=== PATIENT | female | born 1945 | race Caucasian/White ===

== ENCOUNTER 2018-01-26 08:30 | Outpatient (RCR) | payer OTHER, SELFPAY ==
--- NOTE | 2018-01-05 11:37 | PTTR_ITS ---
DATE: 01/05/18 SUBJECTIVE: Pt states that she is doing ok for the most part and still noticing some tenderness and limited motion through the shoulder. OBJECTIVE: Manual therapy: ([id number]). Pt place din the supine position gently mobilized with cervical traction to achieve a resting position of cervical retraction. She is then mobilized with gentle segmental glides both lateral and PA and then slightly stretched through the levator and upper trapezius with low load long duration holds. Mobilization then moves to the shoulder girdle where she received oscillatory lateral distraction as well as scapular jiggles to increase muscle tension. Long axis traction is applied while she is mobilized in the plane of scaption to about 120* and pt is then mobilized through the plane of abduction beyond 90* to closer to 100* with a posterior lateral glide of the humeral head. Pt stretched lightly through the pectorals and biceps with low load long duration holds. In the 90* abduction plane, pt is externally rotated to 85*. She has been internally rotated to about 45* with notable limitation with scapular rolling and she is able to achieve closer to 65*. She then receives gentle mobilization to the posterior cuff. Skilled PT services are still required for this pt in order to address her functional limitations mainly due to pain and ROM limitations as she continues to progressively work on her strengthening plan alone. KX modifier applied to all charges. Direct treatment time: 30 minutes Total treatment time: 30 minutes
--- NOTE | 2018-01-12 15:20 | PTTR_ITS ---
DATE: 01/12/18 SUBJECTIVE: Pt states that she is holding her own and continuing to try to strengthen the shoulder. OBJECTIVE: KX modifier applied to all charges Manual therapy: ([id number]). Pt placed in the supine position receiving gentle traction to the cervical vertebrae to unload the cervical spine. She is then gently mobilized with stretching of the levator scapular and upper trap with low load long duration holds. Pt mobilized at the shoulder with oscillatory lateral distraction as well as scapular jiggles. She is then stretched through the pectorals and biceps with low load long duration holds. Posterior lateral glide to the humeral head applied while pt mobilized into about 95* of abduction. Her ER mobilized to about 85* IR with scapular blocking to 45* and overhead shoulder flexion available to 155* in the side lying position on the (R ). She is mobilized through the posterior cuff of the (L) shoulder focusing on the areas of the musculotendinous junction of the ER rotators of the rotator cuff teres minor and teres major. Skilled PT services are required for this pt in order to address and remediate her functional limitations due to strength and mobility impairments. Direct treatment time: 30 minutes Total treatment time: 30 minutes
--- NOTE | 2018-01-19 11:27 | PTTR_ITS ---
DATE: 01/19/18 SUBJECTIVE: I am doing okay for the most part. Still having some issues. OBJECTIVE: Treatment: Manual Therapy ([id number]): Patient was placed in supine and mobilized with gentle cervical traction to achieve resting position of cervical retraction. Patient was mobilized with segmental lateral and PA glides through the cervical spine with good tolerance and then full side bending and extension on top of the articular glide. Patient then mobilized with stretch of the levator scapulae and upper trapezius with low load long duration holds. In the prone position the patient was guided through PA glides through the thoracic spine up to a grade III distribution of strength. Patient was then mobilized with extension of the shoulder to her end of tolerable limit. Treatment time: 30 minutes of direct patient care.
--- NOTE | 2018-01-26 11:12 | PTTR_ITS ---
DATE: 01/26/18 SUBJECTIVE: Pt states that she is doing ok for the most part. Still some difficulty with performing some of her everyday activities with her L shoulder. OBJECTIVE: Manual therapy: ([id number]).Pt placed in the supine position receiving gentle traction through the cervical vertebra to unload the cervical spine, while then applying gentle oscillations of cervical retraction and then segmental, both PA and lateral glides, to facilitate motion. She is softly side bent and extended and then stretched lightly through the upper trapezius with low load long duration holds. Pt then mobilized in the prone position through the thoracic spine with grade III+ mobilizations to promote vertebral separation and pure joint glide. She is then extended through the shoulder to end range with oscillations to improve extensibility. In the supine position, she is mobilized with oscillatory lateral distraction, as well as scapular jiggles to decrease muscle tension. Pt tolerates treatment well. KX modifier applied to today's charge. Skilled PT services are still required for this pt in order to accommodate to her lingering shoulder issues and to remediate some of her functional discrepancies with premorbid ability. Direct treatment time: 35 min Total treatment time: 35 min MIKE/fw
== END 2018-01-30 23:59 | disposition home or self-care (01) ==
LOC: PT 08:30
PROVIDERS: PCP Family Medicine; Referring Provider Student in an Organized Health Care Education/Training Program; Visit Provider Student in an Organized Health Care Education/Training Program
DX: Z47.89 Encounter for other orthopedic aftercare (principal); M75.02 Adhesive capsulitis of left shoulder
CPT/HCPCS: 97140

== ENCOUNTER 2018-01-28 01:04 | Outpatient (CLI) | payer OTHER, SELFPAY ==
--- NOTE | 2018-01-28 09:15 | DI.REPORT_ITS ---
SYMPTOM/DIAGNOSIS: SCREENING, Z12.31 MAMMOGRAMS: Mammograms were interpreted according to the usual protocol including computer analysis with CAD system, tomosynthesis and C view imaging. The breast tissue is heterogeneously radiodense which lowers the sensitivity of the study. There is no dominant mass. There are no suspicious calcifications and there has been no significant interval change when compared with prior images. SUMMARY: No evidence of malignancy, category 1. Yearly screening mammography is recommended. Breast density, category C. SA ASSESSMENT OF FINDINGS: Negative. Category 1. Patient will receive a letter notifying them of these results. Bi-RADS category C. The breasts are heterogeneously dense, which may obscure small masses.
== END 2018-01-28 01:05 ==
PROVIDERS: PCP Family Medicine; Visit Provider Family Medicine
DX: Z12.31 Encounter for screening mammogram for malignant neoplasm of breast (principal)
CPT/HCPCS: 77063; 77067

== ENCOUNTER → 2018-03-02 07:58 | Outpatient (BNVA) | payer OTHER, SELFPAY | PROVIDERS: PCP Family Medicine; Referring Provider Family Medicine; Visit Provider Student in an Organized Health Care Education/Training Program | DX: M75.112 Incomplete rotator cuff tear or rupture of left shoulder, not specified as traumatic (principal); M75.02 Adhesive capsulitis of left shoulder; M25.512 Pain in left shoulder | CPT/HCPCS: 20610; 99213; J1040 ==

== ENCOUNTER → 2018-04-20 08:39 | Outpatient (BNVA) | payer OTHER, SELFPAY | PROVIDERS: PCP Family Medicine; Referring Provider Family Medicine; Visit Provider Student in an Organized Health Care Education/Training Program | DX: M75.102 Unspecified rotator cuff tear or rupture of left shoulder, not specified as traumatic (principal); M75.02 Adhesive capsulitis of left shoulder | CPT/HCPCS: 20610; 99213; J1040 ==

== ENCOUNTER → 2018-06-03 08:00 | Outpatient (BNVA) | payer OTHER, SELFPAY | PROVIDERS: PCP Family Medicine; Referring Provider Family Medicine; Visit Provider Student in an Organized Health Care Education/Training Program | DX: M75.122 Complete rotator cuff tear or rupture of left shoulder, not specified as traumatic (principal); M75.02 Adhesive capsulitis of left shoulder; Z47.89 Encounter for other orthopedic aftercare | CPT/HCPCS: 99213 ==

== ENCOUNTER 2020-03-31 12:10 | Emergency (ER) | payer OTHER, SELFPAY ==
[2020-03-31 12:17] VITALS: BP 154/60; PULSE 53; RESP 18; TEMP 36.5; O2SAT 100
--- NOTE | 2020-03-31 12:30 | RT.EKG_ITS ---
APPROVED REPORT Exam: Resting ECG Patient Location: E HR:50 bpm ECG Measurements Heart Rate 50 AXIS ID 165 P 82 QRSd 81 QRS 71 QT 470 T 64 QTc 430 Conclusion Sinus bradycardia...rate< 60 Probable left atrial enlargement...P >50mS, <-0.10mV V1
--- NOTE | 2020-03-31 12:30 | DI.CT_ITS ---
EXAM: CT BRAIN NECK CTA CLINICAL HISTORY: Visual changes, headache, dizzy. TECHNIQUE: Imaging Protocol: Axial CT angiography was performed with multi-slice acquisition and mu lti-planar and/or 3D reconstructions. CONTRAST MATERIAL: Intravenous: Omnipaque 350 Contrast volume:structured data in ml COMPARISON: No exams were available for comparison FINDINGS: CT angiography of the cervical cranial region was performed according to the usual protocol with intr avenous infusion of 85 cc of Omnipaque 350.. Initial noncontrast scanning of the head is unremarkable. Visualized lung apices are clear. Visualized portions of thoracic aorta and pulmonary arterial circul ation are unremarkable. There is no evidence of a cervical mass or adenopathy. The tracheal laryngeal structures appear intact. The common, internal, and external carotid arteries are within normal limits in the cervical region w ith no evidence of aneurysm, stenosis, or dissection. The vertebral arteries are unremarkable in appearance in the cervical region with no evidence of aneu rysm, stenosis, or dissection. Intracranial portions of the internal carotid arteries appear normal with no evidence of aneurysm, st enosis, or dissection. Intracranial vertebral arteries and basilar artery appear normal with no evidence of aneurysm, stenos is or dissection. No aneurysm identified in the region of the [id number]. The anterior, middle, and posterior cer ebral arteries and major branches appear intact with no evidence of aneurysm, stenosis, or dissection . No enhancing brain lesion identified. IMPRESSION: Negative CT angiography of the cervical cranial region. RADIATION DOSE DELIVERED: 1,038.68mGy.cmTotal DLP 1,038.68mGy.cm Total DLP DATA REPOSITORY: All CT scans at this facility are submitted to the National Radiology Data Registry (NRDR) Dose Index Registry (DIR) with the [employer] (A[employer]). RADIATION OPTIMIZATION: All CT scans at this facility use at least one of these dose optimization te chniques: automated exposure control; mA and/or kV adjustment per patient size (includes targeted exa ms where dose is matched to clinical indication); or iterative reconstruction.
[2020-03-31 12:32] VITALS: RESP 18
--- NOTE | 2020-03-31 12:35 | ED.GENADUL_ITS ---
Discharge Plan Disposition Patient Disposition: HOME Condition: Stable Discharge Details Clinical Impression: [facility] Primary Care Provider: Elif Mullen ED Provider: Phuong Valero Home Meds and New Rx's Prescriptions: Continued valacyclovir 500 MG tablet 500 mg PO PRN RF: 0 vitamin B complex [B Complete] 1 EACH tablet 1 ea PO DAILY RF: 0 calcium carbonate 500 MG tablet,chewable 500 mg PO DAILY RF: 0 acetaminophen [Acetaminophen Extra Strength] 500 MG tablet 1,000 mg PO Q8H PRN PRNQty: 180 RF: 3 Turmeric/Herbal Complex No.278 [in-Fla-Mend Capsule] 150 MG capsule 150 mg PO DAILY RF: 0 ibuprofen 200 MG tablet 200 mg PO PRN PRNRF: 0 Discharge Instructions Instructions: [facility] (ED) Additional Instructions: Your work-up today was completely within normal limits. No abnormalities noted on head CT or labs. Please follow-up with neurology and ophthalmology and primary care provider as previously discussed. Follow up with primary care provider in 3-5 days. Return to ED sooner if any worsening or concerns. Increase oral fluids. Return for any worsening symptoms, worsening headache, weakness, dizziness or any concerns. Referrals: Elif Mullen [Primary Care Provider] - Shannan Ellington MD [ [facility] STAFF PHYSICIAN] - Discharge Data Discharge Date/Time-TO BE ENTERED AT DEPARTURE: 03/31/20 17:20 Medical Decision Making <AARON Guerrero - Last Filed: 04/01/20 16:19> 75-year-old female presents with double vision, feeling off balance, mild headache that began approximately 30 minutes ago, feeling off balance and double vision resolves within 3 minutes, global dull headache persists. Clinically she appears well, nontoxic, she is neurologically intact. Patient is fairly healthy at baseline. Differential includes but not excluded to ocular migraine, TIA, CVA, mass at the optic chiasm, intracranial bleed, aneurysm, etc. We discussed work-up. She is agreeable to obtaining IV access, laboratory values, chest x- ray, EKG, CTA of head and neck and a head CT. Initial work-up in the ER is unremarkable for emergent process. Blood pressure trending down to 148/66. Laboratory values reveal a normal white count, no evidence of anemia, platelet count 181. INR 1.1, chemistries unremarkable. Troponin less than 0.05. Urinalysis trace blood otherwise unremarkable. Chest x-ray, head CT, head and neck CTA all unremarkable per radiology. Discussed work-up with patient. She is relieved and agreeable to awaiting repeat troponin. Reports headache is still dull, will give 1 g p.o. Tylenol. It should be noted that her visual acuity left and right was 20/50, bilaterally 20/20. Patient eating a sandwich and drinking coffee without difficulty. Awaiting repeat troponin. Medical Records Medical records reviewed: Yes I reviewed the patient's medical records. Lab Data Lab results reviewed: Yes I reviewed the patient's lab results. Lab results narrative: Laboratory Tests Range/Units 03/31/20 03/31/20 03/31/20 12:40 12:50 12:50 WBC (4.4-10.8) 10^3/uL RBC (3.93-5.22) 10^6/uL Hgb (11.2-15.7) g/dL Hct (36.0-46.0) % MCV (80-95) fL MCH (27.0-33.0) pg MCHC (32.0-36.0) % RDW (11.7-14.6) % Plt Count (130-400) 10^3/uL MPV (8.0-11.0) fL Immature Gran % Neutrophils % Lymphocytes % Monocytes % Eosinophils % Basophils % Nucleated RBC % % Absolute Neutrophils (1.2-6.7) 10^3/uL Absolute Lymphocytes (1.2-3.4) 10^3/uL Absolute Monocytes (0.1-0.8) 10^3/uL Absolute Eosinophils (0.0-0.7) 10^3/uL Absolute Basophils (0.0-0.2) 10^3/uL PT (9.3-11.0) sec 10.7 INR (0.9-1.1) 1.1 Sodium (136-145) mmol/L 140 Potassium (3.5-5.1) mmol/L 3.7 Chloride (98-107) mmol/L 105 Carbon Dioxide (21.0-32.0) mmol/L 29.5 Anion Gap (3-11) mmol/L 5.5 BUN (7-18) mg/dL 15 Creatinine (0.55-1.02) mg/dL 0.71 Estimated GFR/1.73 m2 (mL/min/1.73m2) >= 60.00 Glucose (74-106) mg/dL 87 Calcium (8.5-10.1) mg/dL 8.9 Magnesium (1.8-2.4) mg/dL 2.3 Total Bilirubin (0.2-1.0) mg/dL 0.3 AST (15-37) U/L 22 ALT (14-59) U/L 25 Alkaline Phosphatase (46-116) U/L 56 Troponin I (<0.06) ng/mL < 0.05 Total Protein (6.4-8.2) g/dL 6.7 Albumin (3.4-5.0) g/dL 3.5 Urine Color (Yellow) Yellow Urine Clarity (Clear) Clear Urine pH (5-8) 7.0 Ur Specific [place] (1.005-1.025) 1.015 Urine Protein (Negative) mg/dL Negative Urine Ketones (Negative) mg/dL Negative Urine Blood (Negative) Trace-intact H Urine Nitrite (Negative) Negative Urine Bilirubin (Negative) Negative Urine Urobilinogen (Up TO 0.2) EU/dL 0.2 Ur Leukocyte Esterase (Negative) Negative Urine RBC (0-2) HPF 0-2 Urine WBC (0-5) HPF 0-2 Ur Epithelial Cells (Negative) HPF Few Urine Crystals (Negative) HPF Negative Urine Bacteria (Negative) HPF Negative Urine Casts (Negative) LPF Negative Urine Mucus (Negative) Negative Ur Culture Indicated? No Urine Glucose (Negative) mg/dL Negative Range/Units 03/31/20 12:50 WBC (4.4-10.8) 10^3/uL 5.09 RBC (3.93-5.22) 10^6/uL 4.24 Hgb (11.2-15.7) g/dL 12.6 Hct (36.0-46.0) % 39.4 MCV (80-95) fL 92.9 MCH (27.0-33.0) pg 29.7 MCHC (32.0-36.0) % 32.0 RDW (11.7-14.6) % 14.2 Plt Count (130-400) 10^3/uL 181 MPV (8.0-11.0) fL 10.7 Immature Gran % 0.2 Neutrophils % 52.8 Lymphocytes % 32.4 Monocytes % 11.0 Eosinophils % 2.8 Basophils % 0.8 Nucleated RBC % % 0 Absolute Neutrophils (1.2-6.7) 10^3/uL 2.69 Absolute Lymphocytes (1.2-3.4) 10^3/uL 1.65 Absolute Monocytes (0.1-0.8) 10^3/uL 0.56 Absolute Eosinophils (0.0-0.7) 10^3/uL 0.14 Absolute Basophils (0.0-0.2) 10^3/uL 0.04 PT (9.3-11.0) sec INR (0.9-1.1) Sodium (136-145) mmol/L Potassium (3.5-5.1) mmol/L Chloride (98-107) mmol/L Carbon Dioxide (21.0-32.0) mmol/L Anion Gap (3-11) mmol/L BUN (7-18) mg/dL Creatinine (0.55-1.02) mg/dL Estimated GFR/1.73 m2 (mL/min/1.73m2) Glucose (74-106) mg/dL Calcium (8.5-10.1) mg/dL Magnesium (1.8-2.4) mg/dL Total Bilirubin (0.2-1.0) mg/dL AST (15-37) U/L ALT (14-59) U/L Alkaline Phosphatase (46-116) U/L Troponin I (<0.06) ng/mL Total Protein (6.4-8.2) g/dL Albumin (3.4-5.0) g/dL Urine Color (Yellow) Urine Clarity (Clear) Urine pH (5-8) Ur Specific [place] (1.005-1.025) Urine Protein (Negative) mg/dL Urine Ketones (Negative) mg/dL Urine Blood (Negative) Urine Nitrite (Negative) Urine Bilirubin (Negative) Urine Urobilinogen (Up TO 0.2) EU/dL Ur Leukocyte Esterase (Negative) Urine RBC (0-2) HPF Urine WBC (0-5) HPF Ur Epithelial Cells (Negative) HPF Urine Crystals (Negative) HPF Urine Bacteria (Negative) HPF Urine Casts (Negative) LPF Urine Mucus (Negative) Ur Culture Indicated? Urine Glucose (Negative) mg/dL ECG Data Attestation: I personally reviewed and interpreted this ECG (s) as follows: Interpretation: Please see official report by Dr. Austin. Sinus bradycardia, ventricular rate of 50. No STEMI <Phuong Valero - Last Filed: 03/31/20 17:17> Care handed off to me by off going provider AARON Hemphill please see his original HPI and physical exam. At this time serial troponin is pending patient is resting quietly in the bed no acute distress has no complaints at this time. Repeat troponin is come back within normal limits discussed results and follow- up with patient who verbalized understanding. Instructed to follow-up with neurology Shannan Ellington and PCP along with ophthalmology. Patient ve rbalizes understanding. This text was generated using [employer]iant[employer] system, please disregard any oddities of phrase or misspellings. HPI <AARON Guerrero - Last Filed: 04/01/20 16:19> General Mode of arrival: EMS . Date/Time Provider Initiated Documentation: 03/31/20 12:22 . Limitations to Documentation: no limitations . Information obtained by: patient and EMS . HPI Narrative: This is a 75-year-old female with past medical history that includes fibromyalgia, GERD, presenting to the ER via EMS for evaluation. She denies any recent illness or trauma. Reports increased home stressors, her was recently placed in a [place] [facility] because of dementia and she now lives at home alone. She was outside approximately 30 minutes prior to arrival when she noticed that she was having double vision. She states that the double vision was only present when both of her eyes were open and if she closed either her left or right the symptoms went away. This was associated with a feeling of being off balance but she did not fall. She does not describe dizziness like the room was spinning. She reports he was also associated with a mild global headache, slightly worse in the occiput. She denies ever having had any symptoms like this before. She tells me that she does have ocular migraines but they have never presented like this b efore. She states that the off-balance feeling and the double vision lasted for no longer than 3 minutes although she still does have a very mild dull headache. She denies neck pain, chest pain, shortness of breath, numbness, tingling, weakness, abdominal pain, nausea, vomiting, incontinence. Related Data Home Medications Medication Instructions Recorded Confirmed valacyclovir 500 mg PO PRN 07/21/15 03/31/20 calcium carbonate 500 mg PO DAILY tab.chew 07/24/15 03/31/20 vitamin B complex [B Complete] 1 ea PO DAILY 07/24/15 03/31/20 acetaminophen [Acetaminophen Extra 1,000 mg PO Q8H PRN PRN #180 tab 06/19/17 03/31/20 Strength] Turmeric/Herbal Complex No.278 150 mg PO DAILY 09/03/17 03/31/20 [in-Fla-Mend Capsule] ibuprofen 200 mg PO PRN PRN 09/04/17 03/31/20 Previous Rx's Medication Instructions Recorded acetaminophen [Acetaminophen Extra 1,000 mg PO Q8H PRN PRN #180 tab 06/19/17 Strength] Allergies Allergy/AdvReac Type Severity Reaction Status Date / Time erythromycin base Allergy Mild Skin Rash Unverified 03/31/20 12:22 metronidazole [From Flagyl] Allergy Mild Skin Rash Unverified 03/31/20 12:22 nystatin Allergy Mild Skin Rash Unverified 03/31/20 12:22 erythromycin lactobionate Allergy rash Unverified 03/31/20 12:22 [From Erythrocin] omeprazole AdvReac Intermediate Unverified 03/31/20 12:22 NSAIDS (Non-Steroidal AdvReac mouth sores Unverified 03/31/20 12:22 Anti-Inflamma General Stated Complaint: [facility]Medical ZARA: 3 Review of Systems <AARON Guerrero - Last Filed: 04/01/20 16:19> Constitutional Constitutional: Denies fatigue, Denies fever(s), Reports headache(s) and Denies weakness Eyes Eyes: Denies blurry vision, Reports diplopia and Denies floaters ENT Ears, Nose, Mouth, and Throat: Denies dizziness, Reports headache(s) and Denies neck pain Cardiovascular Cardiovascular: Denies chest pain and Denies dyspnea Respiratory Respiratory: Denies dyspnea Gastrointestinal Gastrointestinal: Denies abdominal pain, Denies nausea and Denies vomiting Musculoskeletal Musculoskeletal: Denies back pain, Denies neck pain, Denies numbness and Denies tingling Integumentary/Breasts Skin/Breast: Denies rash Neurologic Neurologic: Denies dizziness, Reports headache(s), Denies numbness, Denies tingling and Denies weakness Endocrine Endocrine: Denies fatigue PFSH <AARON Guerrero - Last Filed: 04/01/20 16:19> Medical History Borderline diabetes mellitus Fibromyalgia GERD (gastroesophageal reflux disease) Impacted cerumen, left ear Surgical History Colonoscopy - [facility] (05/02/17) Family History Mother Diabetes Alcohol abuse CHF (congestive heart failure) Afib Father Dementia Pacemaker Social History Smoking/Tobacco Use Status: Never Smoking risk assessment performed?: Yes Alcohol Intake: current Alcohol Intake frequency: holidays/special occasions only Drug use: Never Substance use type: does not use Do you feel safe at home: Yes Do you feel safe in your relationship?: Yes Exam <AARON Guerrero - Last Filed: 04/01/20 16:19> Const General: cooperative, healthy appearing, comfortable and no acute distress Orientation: alert, awake and oriented x3 HENMT Head: normal to inspection, normocephalic and atraumatic Ears: external ears normal, TM's normal bilaterally and EAC's normal General nose exam: external nose normal Face and sinus: normal facial exam Mouth: oral mucosae normal and moist mucous membranes Throat: posterior oropharynx normal Eyes General: appearance normal, both eyes and all related structures Alignment and Position: alignment normal Periorbital: periorbital findings normal Eyelids: eyelids normal Conjunctivae: conjunctivae normal Sclera: sclerae normal Cornea: corneas normal Pupils: PERRL EOM: EOM intact bilaterally Direct ophthalmoscopy: normal light reflex Neck Neck: normal visual inspection, full ROM, no meningeal signs, trachea midline, supple and nontender Resp Effort & Inspection: normal respiratory effort and able to speak in complete sentences Auscultation: clear to auscultation bilaterally Cardio Rate: regular rate Rhythm: regular rhythm GI Palpation: soft and nontender Back/Spine/Pelvis Back: No back tenderness Skin General skin exam: no rashes or lesions noted Neuro General: patient alert, patient awake, patient oriented x3, moves all ext remities and no focal motor deficits Cranial Nerves: CN's II-XI intact bilaterally Cognition: normal cognition Speech: speech normal Gait: normal gait Motor: muscle tone normal throughout, strength 5/5 throughout, no pronator drift, no movement abnormalities noted and no fasciculations Sensory Exam: no sensory deficits noted Coordination: [id number] test normal, [id number] test normal, Does not sway with eyes open and rapid alternating movement UE normal Extrem General: normal to inspection, full ROM, capillary refill normal, no pedal edema and normal gait Psych Appearance: grossly normal Mental Status: mental status grossly normal Course <AARON Guerrero - Last Filed: 04/01/20 16:19> Vital Signs Vital signs: Vital Signs Temperature 36.5 C 03/31/20 12:17 Pulse 53 L 03/31/20 12:17 Respiratory Rate 18 03/31/20 12:17 Blood Pressure 154/60 H 03/31/20 12:17 Pulse Oximetry 100 03/31/20 12:17 Temperature 36.5 C 03/31/20 12:17 Pulse 53 L 03/31/20 12:17 Respiratory Rate 18 03/31/20 12:32 Respiratory Effort Non-Labored 03/31/20 12:32 Respiratory Depth Normal 03/31/20 12:32 Respiratory Pattern Normal 03/31/20 12:32 Blood Pressure 154/60 H 03/31/20 12:17 Blood Pressure Position Sitting 03/31/20 12:17 Pulse Oximetry 100 03/31/20 12:17 Oxygen Delivery Method Room Air 03/31/20 12:17 Oxygen Flow Rate 0 03/31/20 12:17 Sign Out <AARON Guerrero - Last Filed: 04/01/20 16:19> Sign Out Data: Sign Out Comment: At time of signout awaiting 3-hour troponin. We discussed options, patient would prefer to be discharged home versus admitted if all possible. I do believe that discharge home is reasonable assuming that she feels well and troponin is unremarkable. She does understand that outpatient follow-up through neurology, ophthalmology, potential outpatient MRI are options. Last updated by Raymond Barajas PA at 03/31/20 15:40
[2020-03-31 12:59] LABS: Abs Immature Grans 0.01 10^3/uL (0.0-0.06); Absolute Basophil Count 0.04 10^3/uL (0.0-0.2); Absolute Eosinophil Count 0.14 10^3/uL (0.0-0.7); Absolute Lymphocyte Count 1.65 10^3/uL (1.2-3.4); Absolute Monocyte Count 0.56 10^3/uL (0.1-0.8); Absolute Neutrophil Count 2.69 10^3/uL (1.2-6.7); Basophils % 0.8; Eosinophils % 2.8; HCT 39.4 % (36.0-46.0); HGB 12.6 g/dL (11.2-15.7); Immature Grans % 0.2; Lymphocytes % 32.4; MCH 29.7 pg (27.0-33.0); MCV 92.9 fL (80-95); MPV 10.7 fL (8.0-11.0); Neutrophils % 52.8; Nucleated RBC 0 %; Platelet Count 181 10^3/uL (130-400); RBC 4.24 10^6/uL (3.93-5.22); RDW 14.2 % (11.7-14.6); RDW-SD 48.7 fL; WBC 5.09 10^3/uL (4.4-10.8)
[2020-03-31 13:14] LABS: ALT 25 U/L (14-59); AST 22 U/L (15-37); Albumin 3.5 g/dL (3.4-5.0); Alkaline Phosphatase 56 U/L (46-116); Anion Gap 5.5 mmol/L (3-11); BUN 15 mg/dL (7-18); Bilirubin, Total 0.3 mg/dL (0.2-1.0); CO2 29.5 mmol/L (21.0-32.0); CREATININE 0.71 mg/dL (0.55-1.02); Calcium 8.9 mg/dL (8.5-10.1); Chloride 105 mmol/L (98-107); Glucose 87 mg/dL (74-106); Magnesium 2.3 mg/dL (1.8-2.4); Potassium 3.7 mmol/L (3.5-5.1); Sodium 140 mmol/L (136-145); Total Protein 6.7 g/dL (6.4-8.2)
[2020-03-31 13:16] LABS: INR 1.1 (0.9-1.1); Prothrombin Time 10.7 sec (9.3-11.0)
[2020-03-31 13:17] LABS: Troponin I < 0.05 ng/mL (<0.06)
[2020-03-31 13:20] LABS: Bilirubin Negative (Negative); Blood Trace-intact (Negative); Clarity Clear (Clear); Glucose Negative (Negative); Ketones Negative (Negative); Leukocyte Esterase Negative (Negative); Nitrite Negative (Negative); Specific Gravity 1.015 (1.005-1.025); Urobilinogen 0.2 EU/dL (Up TO 0.2)
[2020-03-31 13:30] LABS: Bacteria Negative HPF (Negative); C & S Indicated? No; Casts Negative LPF (Negative); Crystals Negative HPF (Negative); Epithelial Cells Few HPF (Negative); Mucus Negative (Negative); RBC 0-2 HPF (0-2); WBC 0-2 HPF (0-5)
[2020-03-31] MEDS: Normal Saline - Diluent 50 ML VIAL IV (13:30)
[2020-03-31] MEDS: Normal Saline Flush 10 ML SYR IVP (13:30)
--- NOTE | 2020-03-31 13:58 | DI.RAD_ITS ---
EXAM: XR CHEST 2V PA LATERAL CLINICAL HISTORY: dizzy TECHNIQUE: COMPARISON: No exams were available for comparison FINDINGS: The heart is not enlarged. There appear to be mild changes of pulmonary scarring and hyperinflation. No focal consolidation. No pleural effusion. IMPRESSION: No evidence of acute abnormality. RADIATION DOSE DELIVERED: Total DLP
[2020-03-31 14:34] VITALS: BP 148/66; PULSE 67; TEMP 36.7; O2SAT 100
[2020-03-31] MEDS: Acetaminophen 500 MG TAB 1000 MG PO (14:37)
--- NOTE | 2020-03-31 15:45 | RT.EKG_ITS ---
APPROVED REPORT Exam: Resting ECG Patient Location: E HR:62 bpm ECG Measurements Heart Rate 62 AXIS OK 165 P 68 QRSd 64 QRS 69 QT 452 T 57 QTc 451 Conclusion Sinus rhythm...normal P axis, V-rate 60- 99 Atrial premature complex...SV complex w/ short R-R interval
[2020-03-31 16:20] VITALS: BP 107/47; PULSE 59; RESP 18; O2SAT 98
[2020-03-31 16:48] LABS: Troponin I < 0.05 ng/mL (<0.06)
== END 2020-03-31 17:20 | disposition home or self-care (01) ==
PROVIDERS: Physician Assistant; Emergency Provider Registered Nurse Emergency; PCP Family Medicine
DX: H53.2 Diplopia (principal); R51.9 Headache, unspecified; R26.89 Other abnormalities of gait and mobility
CPT/HCPCS: 36416; 70496; 70498; 80053; 82962; 93005; 99285; 71046; 81003; 81015; 83735; 84484; 85025; 85610; 93010; 99284

== ENCOUNTER 2020-04-13 01:23 | Outpatient (CLI) | payer OTHER, SELFPAY ==
--- NOTE | 2020-04-13 | DI.US_ITS ---
EXAM: US CAROTID CLINICAL HISTORY: DOUBLE VISION BOTH EYES,H53.2. TECHNIQUE: Ultrasound carotids performed using grayscale, color-flow, and spectral Doppler imaging. COMPARISON: No exams were available for comparison FINDINGS: RIGHT CAROTID ARTERY: Plaque: Minimal. Velocity elevation: None. LEFT CAROTID ARTERY: Plaque: Minimal. Velocity elevation: None. VERTEBRAL ARTERIES: Antegrade flow. Measurements: R Bulb: 90.7cm/s PS / 23.1cm/s ED R CCA: 93.5cm/s PS / 22.2cm/s ED R ECA: PS / ED R ICA Prox: 65.1cm/s PS /16.6cm/s ED R ICA Mid: 104.1cm/s PS / 31.6cm/s ED R ICA Distal: 83.1cm/s PS /30.5cm/s ED R Vert: 55.7cm/s PS / 13cm/s ED R SVR: 1.11 R DVR: 1.42 L Bulb: 57.8cm/s PS /13.2cm/s ED L CCA: 104.1cm/s PS / 24.6cm/s ED L ECA: PS / ED L ICA Prox:74.5cm/s PS / 20.2cm/s ED L ICA Mid: 94.4cm/sPS / 31.5cm/s ED L ICA Distal: 103.7cm/s PS / 34.2cm/s ED L Vert: 64.3cm/s PS / 18.8cm/s ED L SVR: 1 L DVR: 1.39 IMPRESSION: No evidence for hemodynamically significant carotid stenosis. Criteria for Carotid Stenosis: Normal: ICA PSV <125 cm/s no plaque or intimal thickening is visible. <50% stenosis: ICA PSV <125 cm/s and plaque or intimal thickening is visible. 50-69% stenosis: ICA PSV is 125-250 cm/s and plaque is visible. >70% stenosis to near occlusion: ICA PSV >250 cm/s with visible plaque and luminal narrowing. DATA REPOSITORY:
== END 2020-04-13 01:43 ==
PROVIDERS: PCP Family Medicine; Visit Provider Family Medicine
DX: H53.2 Diplopia (principal)
CPT/HCPCS: 93880

== ENCOUNTER 2020-04-28 02:03 | Outpatient (CLI) | payer OTHER, SELFPAY ==
--- NOTE | 2020-04-28 | DI.MAMMO_ITS ---
EXAM: MAMMO SCREENING CLINICAL HISTORY: SCREENING, Z12.31 TECHNIQUE: Mammograms were interpreted according to the usual protocol including computer analysis w [employer] CAD system, tomosynthesis and C-view imaging. COMPARISON: FINDINGS: The breasts are heterogeneously dense. No dominant mass or clumped microcalcification is identified in either breast. The current examination is compared with previous examinations including January 19 and there has been no gross interval change in appearance in comparison with the prior studies. IMPRESSION: No specific evidence of malignancy at this time. Routine screening examinations are suggested at yea rly intervals in this age group according to the ACS ACR guidelines. BI-RADS Category 1 - Negative Breast Density - Category C - Heterogeneously dense
== END 2020-04-28 02:23 ==
PROVIDERS: PCP Family Medicine; Visit Provider Family Medicine
DX: Z12.31 Encounter for screening mammogram for malignant neoplasm of breast (principal)
CPT/HCPCS: 77063; 77067

== ENCOUNTER 2020-08-10 01:36 | Outpatient (CLI) | payer OTHER, SELFPAY ==
--- NOTE | 2020-08-10 | DI.DEXA_ITS ---
EXAM: XR DEXA BONE DENSITY W/WO NAOMI CLINICAL HISTORY: OSTEOPENIA, M85.80 TECHNIQUE: COMPARISON: No exams were available for comparison FINDINGS: DEXA scan was performed according to the usual protocol. Please see the accompanying data sheets. F indings for left hip scanning are T-score -1.6 with left femoral neck T-score -1.7. Prior examinatio n of December 2015 showed left hip T-score -1.6. Findings for lumbar spine scanning are T-score -1.2. Prior examination of 2016 showed lumbar T-score -0.4. Findings for left forearm scanning are T-score -5.0. Prior examination showed T-score -3.4 in 2016. IMPRESSION: Findings consistent with osteoporosis according to the WHO criteria. The lateral vertebral scanogram shows no evidence of a vertebral compression fracture. RADIATION DOSE DELIVERED: Total DLP
== END 2020-08-10 01:56 ==
PROVIDERS: PCP Family Medicine; Visit Provider Family Medicine
DX: M81.0 Age-related osteoporosis without current pathological fracture (principal); M85.80 Other specified disorders of bone density and structure, unspecified site
CPT/HCPCS: 77080

== ENCOUNTER 2020-09-01 04:03 | Outpatient (CLI) | payer OTHER, SELFPAY ==
--- NOTE | 2020-09-01 10:54 | DI.RAD_ITS ---
EXAM: XR LUMBAR SPINE COMPLETE CLINICAL HISTORY: LUMBAR BACK PAIN,M54.5 TECHNIQUE: COMPARISON: CR XR DEXA BONE DENSITY W/WO NAOMI from 08/10/2020 FINDINGS: Five views were obtained. There is multilevel narrowing of the intervertebral disc spaces, most lyane ed at L3-4 and L4-5 where there is probably vacuum disc phenomenon, consistent with disc degeneration . There are moderate hypertrophic degenerative changes of vertebral endplates and facet joints througho ut the lumbar region. No gross evidence spondylolysis or spondylolisthesis. No evidence of fracture or destructive process. IMPRESSION: Degenerative changes of lumbosacral spine as described above RADIATION DOSE DELIVERED: Total DLP
== END 2020-09-01 04:23 ==
PROVIDERS: PCP Family Medicine; Visit Provider Family Medicine
DX: M47.817 Spondylosis without myelopathy or radiculopathy, lumbosacral region (principal)
CPT/HCPCS: 72110

== ENCOUNTER 2020-11-05 09:02 | Emergency (ER) | payer OTHER, SELFPAY ==
[2020-11-05 09:06] VITALS: BP 120/50; PULSE 60; TEMP 36.4; O2SAT 99
--- NOTE | 2020-11-05 09:08 | ED.GENADUL_ITS ---
Discharge Plan Disposition Patient Disposition: HOME Condition: Good Discharge Details Clinical Impression: Tick bite Primary Care Provider: Elif Mullen ED Provider: Tangela Celis Home Meds and New Rx's Prescriptions: Continued valacyclovir 500 MG tablet 500 mg PO PRN RF: 0 vitamin B complex [B Complete] 1 EACH tablet 1 ea PO DAILY RF: 0 calcium carbonate 500 MG tablet,chewable 500 mg PO DAILY RF: 0 acetaminophen [Acetaminophen Extra Strength] 500 MG tablet 1,000 mg PO Q8H PRN PRNQty: 180 RF: 3 Turmeric/Herbal Complex No.278 [in-Fla-Mend Capsule] 150 MG capsule 150 mg PO DAILY RF: 0 ibuprofen 200 MG tablet 200 mg PO PRN PRNRF: 0 Discharge Instructions Instructions: Tick Bite (ED) Additional Instructions: The area of redness is most consistent with irritation from the bite itself. I do not see evidence of bacterial infection at this time. The type of tick that bit you will not be able to spread line. This is not consistent with the erythema migrans rash classically seen with Lyme. You may use hydrocortisone cream to help with any itching. Please continue with your daily tick checks. Please follow-up with primary care this week if redness is not resolving. If you develop fever/chills, spreading of the redness, pain or other new/worsening symptoms please seek care urgently once again. Referrals: Elif Mullen [Primary Care Provider] - Discharge Data Discharge Date/Time-TO BE ENTERED AT DEPARTURE: 11/05/20 09:29 Medical Decision Making Patient is a pleasant 75-year-old female presenting today with chief complaint of tick bite. She reports that 2 days ago she removed the tick from the left side of her upper back that was embedded in on for an unknown length of time. She and I worked up as her dissection she states that it was definitely a dog ti ck as she remembers the white aspect in the past. States that the area around the bite slightly itchy. On exam, patient has a 2 cm circumferential red area. Nontender to palpation. No fluctuance. No surrounding abnormality. As this was a dog tick bite, and there is no evidence of erythema migrans, I do not feel that prophylaxis for Lyme is appropriate at this time. Card with information about local ticks was given to the patient. We did take a picture for her of the area so she can cont inue to monitor this. She will continue to perform daily tick checks. I did advise follow-up with primary care should this not improve or becoming worse. Return precautions were discussed. All of her questions and concerns were addressed and she is in agreement with this plan. HPI General Mode of arrival: ambulatory . Date/Time Provider Initiated Documentation: 11/05/20 09:08 . Limitations to Documentation: no limitations . Information obtained by: patient and RN notes reviewed . History of Present Illness 75 year old F presents to the emergency department with the chief compl aint of Tick bite, described as mild, with intensity rated at 2. Quality is described as other (itchy), and is localized to the back. Patient reports no radiation. Patient started experiencing this day(s) (2) and it has been constant. No relieving factors improve symptom(s), No exacerbating factors reported . Patient notes no other symptoms.. Patient did receive the following treatments prior to arrival, none Related Data Home Medications Medication Instructions Recorded Confirmed valacyclovir 500 mg PO PRN 07/21/15 11/05/20 calcium carbonate 500 mg PO DAILY tab.chew 07/24/15 11/05/20 vitamin B complex [B Complete] 1 ea PO DAILY 07/24/15 11/05/20 acetaminophen [Acetaminophen Extra 1,000 mg PO Q8H PRN PRN #180 tab 06/19/17 11/05/20 Strength] Turmeric/Herbal Complex No.278 150 mg PO DAILY 09/03/17 11/05/20 [in-Fla-Mend Capsule] ibuprofen 200 mg PO PRN PRN 09/04/17 11/05/20 Previous Rx's Medication Instructions Recorded acetaminophen [Acetaminophen Extra 1,000 mg PO Q8H PRN PRN #180 tab 06/19/17 Strength] Allergies Allergy/AdvReac Type Severity Reaction Status Date / Time erythromycin base Allergy Mild Skin Rash Unverified 11/05/20 09:12 metronidazole [From Flagyl] Allergy Mild Skin Rash Unverified 11/05/20 09:12 nystatin Allergy Mild Skin Rash Unverified 11/05/20 09:12 erythromycin lactobionate Allergy rash Unverified 11/05/20 09:12 [From Erythrocin] omeprazole AdvReac Intermediate Unverified 11/05/20 09:12 NSAIDS (Non-Steroidal AdvReac mouth sores Unverified 11/05/20 09:12 Anti-Inflamma General ZARA: 3 Review of Systems Constitutional Constitutional: Reports as per HPI, Denies chills and Denies fever(s) Musculoskeletal Musculoskeletal: Reports as per HPI Integumentary/Breasts Skin/Breast: Reports as per HPI Neurologic Neurologic: Reports as per HPI, Denies sensory deficit and Denies paresthesias PFSH Medical History Borderline diabetes mellitus Fibromyalgia GERD (gastroesophageal reflux disease) Impacted cerumen, left ear Surgical History Colonoscopy - MAC (05/02/17) Family History Mother Diabetes Alcohol abuse CHF (congestive heart failure) Afib Father Dementia Pacemaker Social History Smoking/Tobacco Use Status: Never Smoking risk assessment performed?: Yes Alcohol Intake: current Alcohol Intake frequency: holidays/special occasions only Drug use: Never Substance use type: does not use Do you feel safe at home: Yes Do you feel safe in your relationship?: Yes Exam Const General: cooperative, healthy appearing, comfortable, no acute distress and well developed Nutritional Appearance: average body habitus and well nourished Orientation: alert and awake Resp Effort & Inspection: normal respiratory effort, able to speak in complete sentences and no respiratory distress Cardio Rate: regular rate Rhythm: regular rhythm Back/Spine/Pelvis Back/spine/pelvis image: 1. 2 cm circular erythematous area. Nontender to palpation. No fluctuance. Heart. No surrounding abnormality. bite in the center. No ring to suggest erythema migrans rash. Skin General skin exam: erythema (2cm circular erythematous area) Neuro General: patient alert and patient awake Cognition: normal cognition Speech: speech normal Gait: normal gait Sensory Exam: no sensory deficits noted Psych Appearance: grossly normal and well kempt Mental Status: mental status grossly normal Speech and Movement: speech and movement normal
== END 2020-11-05 09:29 | disposition home or self-care (01) ==
PROVIDERS: Emergency Provider Physician Assistant; PCP Family Medicine
DX: S20.462A Insect bite (nonvenomous) of left back wall of thorax, initial encounter (principal); W57.XXXA Bitten or stung by nonvenomous insect and other nonvenomous arthropods, initial encounter; L29.9 Pruritus, unspecified
CPT/HCPCS: 99282

== ENCOUNTER 2021-07-03 20:11 | Emergency (ER) | payer OTHER, SELFPAY ==
[2021-07-03 20:14] VITALS: BP 158/61; PULSE 57; RESP 16; TEMP 37; O2SAT 97
--- NOTE | 2021-07-03 20:36 | ED.GENADUL_ITS ---
Discharge Plan Disposition Patient Disposition: HOME Condition: Good Discharge Details Clinical Impression: Rash and nonspecific skin eruption Primary Care Provider: Elif Mullen ED Provider: Nimesh Akers Home Meds and New Rx's Prescriptions: Continued celecoxib [Celebrex] 200 mg capsule 400 mg PO DAILY RF: 0 valacyclovir 500 MG tablet 500 mg PO PRN RF: 0 vitamin B complex [B Complete] 1 EACH tablet 1 ea PO DAILY RF: 0 calcium carbonate 500 MG tablet,chewable 500 mg PO DAILY RF: 0 acetaminophen [Acetaminophen Extra Strength] 500 MG tablet 1,000 mg PO Q8H PRN PRNQty: 180 RF: 3 Turmeric/Herbal Complex No.278 [in-Fla-Mend Capsule] 150 MG capsule 150 mg PO DAILY RF: 0 ibuprofen 200 MG tablet 200 mg PO PRN PRNRF: 0 Discharge Instructions Instructions: Acute Rash (ED) Additional Instructions: At this time your rash appears similar to mild eczema. Please apply the hydrocortisone cream 2-3 times daily on your hands and a small dab on the affected areas on your body. Please stop taking your Celebrex for the time being. Do not wash your hands multiple times throughout the day. Do not scratch pick or itch at the affected areas. Continue this treatment modality for the next week. If your symptoms do not improve please follow-up closely with your primary care provider for reassessment discussion of potential oral medications. If you notice any worsening of your symptoms, or any new symptoms such as vomiting, diarrhea, fever, chills, shortness of breath, chest pain, numbness, weakness, or fainting , please return immediately to the emergency department for reevaluation. Please follow up with your primary care provider as soon as possible for reassessment and reevaluation. As always, it was a pleasure participating in your medical care today. Referrals: Elif Mullen [Primary Care Provider] - Medical Decision Making 76-year-old female with past medical history of fibromyalgia, GERD, who presents today for evaluation of rash. Patient states that for the last 3- week she has noticed some redness and rash on her hands bilaterally over the knuckles. Today she noted a small amount of few scattered lesions on her lower extremities. As well as her abdomen. She has been taking Celebrex for the last 3 months but denies any other new medications otherwise. She denies any itching or burning. She denies any oral lesions. She denies any chest pain shortness of breath. No new foods, medications, detergents or pets. She does live alone and does have 2 cats. No other complaints at this time. No nausea vomiting or diarrhea. No other complaints at this time. Physical exam demonstrates dry skin on the knuckles bilaterally, the minimal amount of scaling which looks eczematous to me. Few small lesions which look like scratching/picking lesions on the knuckles are noted. No active bleeding no evidence of cellulitis. Few small punctate lesions are noted in the anterior thighs and knees, 5 in total. They look like small follicular irritations. No evidence of cellulitis. Exam in general appears notably benign. No current clinical evidence of staph scalded skin syndrome, erythema multiforme, erythema migrans, toxic epidermal necrolysis, Zamudio-Daniel syndrome, Kawasaki-like rash, meningococcemia, pemphigus vulgaris, or necrotizing fasciitis. For the skin on her hands we will offer hydrocortisone cream as there does appear to be an eczematous component. Recommend decrease in handwashing, no picking, and no itching. No indication for systemic steroids at this time. Recommend close follow-up with your PCP in the next week. No signs of anaphylaxis whatsoever or other concerning rash at this time. Discussed red flags which to return. I have extensively reviewed the treatment plan and discharge instructions with the patient. I have addressed all patient concerns at this time. The patient was made aware of what symptoms to monitor for that would warrant a return to the emergency department. Discussed the plan with the patient, they demonstrate verbal understanding and agreement with our assessment and plan at this time. The documentation in this chart was dictated using [employer] dictation software. Please excuse any dictation errors. HPI General Date/Time Provider Initiated Documentation: 07/03/21 20:12 . HPI Narrative: 76-year-old female with past medical history of fibromyalgia, GERD, who presents today for evaluation of rash. Patient states that for the last 3- week she has noticed some redness and rash on her hands bilaterally over the knuckles. Today she noted a small amount of few scattered lesions on her lower extremities. As well as her abdomen. She has been taking Celebrex for the last 3 months but denies any other new medications otherwise. She denies any itching or burning. She denies any oral lesions. She denies any chest pain shortness of breath. No new foods, medications, detergents or pets. She does live alone and does have 2 cats. No other complaints at this time. No nausea vomiting or diarrhea. No other complaints at this time. Related Data Home Medications Medication Instructions Recorded Confirmed valacyclovir 500 mg PO PRN 07/21/15 07/03/21 calcium carbonate 500 mg PO DAILY tab.chew 07/24/15 07/03/21 vitamin B complex [B Complete] 1 ea PO DAILY 07/24/15 07/03/21 acetaminophen [Acetaminophen Extra 1,000 mg PO Q8H PRN PRN #180 tab 06/19/17 07/03/21 Strength] Turmeric/Herbal Complex No.278 150 mg PO DAILY 09/03/17 04/18/21 [in-Fla-Mend Capsule] ibuprofen 200 mg PO PRN PRN 09/04/17 07/03/21 celecoxib 200 mg capsule 400 mg PO DAILY 04/18/21 07/03/21 Previous Rx's Medication Instructions Recorded acetaminophen [Acetaminophen Extra 1,000 mg PO Q8H PRN PRN #180 tab 06/19/17 Strength] Allergies Allergy/AdvReac Type Severity Reaction Status Date / Time erythromycin base Allergy Mild Skin Rash Verified 07/03/21 20:23 metronidazole [From Flagyl] Allergy Mild Skin Rash Verified 07/03/21 20:23 nystatin Allergy Mild Skin Rash Verified 07/03/21 20:23 erythromycin lactobionate Allergy rash Verified 07/03/21 20:23 [From Erythrocin] omeprazole AdvReac Intermediate Verified 07/03/21 20:23 NSAIDS (Non-Steroidal AdvReac mouth sores Verified 07/03/21 20:23 Anti-Inflamma General Stated Complaint: RashLesion ZARA: 4 Review of Systems All systems reviewed & are unremarkable except as noted in HPI and below PFSH All Active Problems Rash and nonspecific skin eruption (Acute) Tick bite (Acute) Tinnitus, bilateral (Acute) History of excessive cerumen (Acute) Unspecified rotator cuff tear or rupture of left shoulder, not specified as traumatic (Acute 04/11/17) Sensorineural hearing loss, bilateral (Acute 04/26/15) Pseudogout of right knee (Acute 01/20/17) Complete tear of right rotator cuff (Acute 09/15/15) Adhesive capsulitis of left shoulder (Acute 08/18/17) Rotator cuff tear (Acute) Secondary adhesive capsulitis of left shoulder (Acute) Medical History Borderline diabetes mellitus Fibromyalgia GERD (gastroesophageal reflux disease) Impacted cerumen, left ear Surgical History Colonoscopy - MAC (05/02/17) History of appendectomy History of bilateral tubal ligation History of facelift History of tonsillectomy and adenoidectomy S/P right rotator cuff repair 2015, 2018 Family History Mother Diabetes Alcohol abuse CHF (congestive heart failure) Afib Father Dementia Pacemaker Social History Smoking/Tobacco Use Status: Never Smoking risk assessment performed?: Yes Alcohol Intake: current Alcohol Intake frequency: holidays/special occasions only Drug use: Never Substance use type: does not use Do you feel safe at home: Yes Do you feel safe in your relationship?: Yes Exam Narrative Exam Narrative: 1.Const: Well-nourished, Well-developed, appearing stated age 2.Eyes: PERRL, no conjunctival injection, and symmetrical lids. 3.ENT: Atraumatic external nose and ears. Moist MM. Neck: Symmetric, trachea midline, No thyromegaly. 4.CVS: +S1/S2, No murmurs or gallops. Peripheral pulses 2+ and equal in all extremities. Brisk capillary refill in all extremities. 5.RESP: Unlabored respiratory effort. Clear to auscultation bilaterally. No wheezes rales or rhonchi 6.GI: Soft, Nontender/Nondistended, No hepatosplenomegaly. No guarding or rebound. 7.MSK: Normocephalic/Atraumatic, Extremities w/o deformity or ttp No cyanosis or clubbing, Normal movement of all extremities 8.Skin: Warm, Dry. No oral lesions. There are few small scattered telangiectasias on her abdomen. These appear chronic and not acute. On her hands there is evidence of mild dry skin over the knuckles with a mild amount of erythema. A few small scattered lesions which look like picking lesions the patient denies any taking. Few other small lesions are noted on the anterior knees and thighs, totaling roughly 5 lesions. No active bleeding. They appear like small punctate erythematous follicular lesions which were then scraped or scratched and have now scabbed over. No redness to suggest cellulitis. Nega tive Nikolsky sign. No large vesicles or bulla. No palpable purpura. No oral lesions. No mucosal lesions. No evidence of severe cellulitis. No evidence of vaccine preventable rash. 9.Neuro: drain technician II-XII grossly intact. Sensation grossly intact, no focal neurologic deficits. 10.Psych: (AAO) x3. Appropriate mood and affect Course Vital Signs Vital signs: Vital Signs Temperature 37.0 C 07/03/21 20:14 Pulse 57 L 07/03/21 20:14 Respiratory Rate 16 07/03/21 20:14 Blood Pressure 158/61 H 07/03/21 20:14 Pulse Oximetry 97 07/03/21 20:14 Temperature 37.0 C 07/03/21 20:14 Temperature Source Skin 07/03/21 20:14 Pulse 57 L 07/03/21 20:14 Respiratory Rate 16 07/03/21 20:14 Respiratory Effort Non-Labored 07/03/21 20:34 Blood Pressure 158/61 H 07/03/21 20:14 Blood Pressure Position Sitting 07/03/21 20:14 Pulse Oximetry 97 07/03/21 20:14 Oxygen Delivery Method Room Air 07/03/21 20:14 Oxygen Flow Rate 0 07/03/21 20:14 Pain Level 0 07/03/21 20:14
[2021-07-03] MEDS: Hydrocortisone 1% CR 30 GM TUBE TP (20:40)
== END 2021-07-03 20:53 | disposition home or self-care (01) ==
PROVIDERS: Emergency Provider Student in an Organized Health Care Education/Training Program; PCP Family Medicine
DX: R21 Rash and other nonspecific skin eruption (principal)
CPT/HCPCS: 99283

== ENCOUNTER 2022-06-13 10:52 | Outpatient (CLI) | payer OTHER, SELFPAY ==
--- NOTE | 2022-06-13 09:45 | DI.RAD_ITS ---
Exam(s) XR HAND LT COMPLETE EXAM: XR HAND LT COMPLETE CLINICAL HISTORY: hand pain. TECHNIQUE: 2D digital imaging was performed of the left hand. Three views were obtained. AP, later al and oblique views were obtained. COMPARISON: No exams were available for comparison FINDINGS: BONES: No acute fracture is present. No bony destructive lesion is seen. JOINTS: No dislocation present. There are marked degenerative changes seen at the 1st CMC joint with joint space narrowing, subchondral sclerosis and bony hypertrophy. The joint spaces are otherwise we ll maintained. SOFT TISSUE: Normal. IMPRESSION: Marked degenerative changes at the 1st CMC joint. DATA REPOSITORY: RADIATION DOSE DELIVERED:
--- NOTE | 2022-06-13 09:45 | DI.RAD_ITS ---
Exam(s) XR HAND RT COMPLETE EXAM: XR HAND RT COMPLETE CLINICAL HISTORY: hand pain. TECHNIQUE: 2D digital imaging was performed of the right hand. Three images were obtained. AP, late ral and oblique views were obtained. COMPARISON: No exams were available for comparison FINDINGS: BONES: No acute fracture is present. No bony destructive lesion is seen. JOINTS: No dislocation present. There are marked degenerative changes seen at the 1st CMC joint with joint space narrowing and bony hypertrophy. Mild degenerative changes are seen at the interphalangea l joints of the hand. SOFT TISSUE: Normal. IMPRESSION: Marked degenerative changes of the 1st CMC joint. DATA REPOSITORY: RADIATION DOSE DELIVERED:
== END 2022-06-13 10:53 | disposition home or self-care (01) ==
LOC: DIORS 10:52
PROVIDERS: PCP Family Medicine; Referring Provider Family Medicine; Visit Provider Student in an Organized Health Care Education/Training Program
DX: M18.0 Bilateral primary osteoarthritis of first carpometacarpal joints
CPT/HCPCS: 73130

== ENCOUNTER 2022-11-25 14:24 | Outpatient (CLI) | payer MEDICARE, SELFPAY ==
--- NOTE | 2022-11-25 14:42 | DI.RAD_ITS ---
Exam(s) XR HIP PELVIS ADULT BL EXAM: XR HIP PELVIS ADULT BL CLINICAL HISTORY: BILATERAL HIP PAIN. TECHNIQUE: 2D digital imaging was performed of the pelvis and bilateral hips. Three images were obt ained. AP pelvis and lateral views of both hips were obtained. COMPARISON: No exams were available for comparison FINDINGS: BONES: No acute fracture is present. No bony destructive lesion is seen. JOINTS: No dislocation present. There is mild narrowing of the hip joints bilaterally. The visualize d sacroiliac joints and symphysis pubis are unremarkable. SOFT TISSUE: Atherosclerosis is present. IMPRESSION: Mild narrowing of the hip joints bilaterally. DATA REPOSITORY: RADIATION DOSE DELIVERED:
== END 2022-11-25 14:25 | disposition home or self-care (01) ==
LOC: DIORS 14:24
PROVIDERS: PCP Family Medicine; Referring Provider Family Medicine; Visit Provider Student in an Organized Health Care Education/Training Program
DX: M53.3 Sacrococcygeal disorders, not elsewhere classified; M70.61 Trochanteric bursitis, right hip
CPT/HCPCS: 73521; 99214

== ENCOUNTER → 2023-03-25 01:02 | Outpatient (CLI) | payer MEDICARE, SELFPAY ==
--- NOTE | 2023-03-25 13:54 | DI.RAD_ITS ---
Exam(s) XR FOOT RT COMPLETE EXAM: XR FOOT RT COMPLETE CLINICAL HISTORY: Painful great toe rt foot,M79.674,M79.671. TECHNIQUE: 2D digital imaging was performed. Three views. COMPARISON: No exams were available for comparison FINDINGS: BONES: No acute fracture is present. No bony destructive lesion is seen. Minimal enthesophyte at Ach illes insertion on calcaneus JOINTS: No dislocation present. Hammertoe deformity of 4th toe. SOFT TISSUE: Normal. IMPRESSION: No acute abnormality. DATA REPOSITORY: RADIATION DOSE DELIVERED:
== END ==
PROVIDERS: PCP Family Medicine; Visit Provider Podiatrist
DX: M79.671 Pain in right foot (principal); M79.674 Pain in right toe(s)
CPT/HCPCS: 73630

== ENCOUNTER 2023-04-11 08:29 | Day surgery (SDC) | payer MEDICARE, SELFPAY ==
[2023-04-11 08:34] VITALS: BP 141/59; PULSE 51; RESP 16; TEMP 36.3; O2SAT 99
--- NOTE | 2023-04-11 08:46 | ANES.PREOP_ITS ---
General Info Date of Service Date Performed: 04/11/23 Height: 5 ft 6.5 in Weight: 58.967 kg Body Mass Index (BMI): 20.6 Surgical Procedure: Operation Date: 04/11/23 10:40 Proposed Procedure Side Surgeon p Cataract Extraction with IOL Implant Left Deangelo Munoz MD Meds Allergies and Home Medications Allergies Allergy/AdvReac Type Severity Reaction Status Date / Time erythromycin base Allergy Mild Skin Rash Verified 04/10/23 14:12 metronidazole [From Flagyl] Allergy Mild Skin Rash Verified 04/10/23 14:12 nystatin Allergy Mild Skin Rash Verified 04/10/23 14:12 erythromycin lactobionate Allergy rash Verified 04/10/23 14:12 [From Erythrocin] omeprazole AdvReac Intermediate Verified 04/10/23 14:12 NSAIDS (Non-Steroidal AdvReac mouth sores Verified 04/10/23 14:12 Anti-Inflamma Home Medication Medication Instructions Recorded valacyclovir 500 mg tablet 500 mg PO PRN 07/21/15 calcium carbonate 500 mg calcium 500 mg PO DAILY 07/24/15 (1,250 mg) chewable tablet vitamin B complex (B Complete 1 ea PO DAILY 07/24/15 tablet) acetaminophen 500 mg tablet 1,000 mg (2 x 500 mg) PO Q8H PRN 06/19/17 (Acetaminophen Extra Strength) PRN #180 tabs Turmeric/Herbal Complex No.278 150 mg PO DAILY 09/03/17 [in-Fla-Mend Capsule] escitalopram oxalate 5 mg tablet 5 mg PO DAILY 06/13/22 Current Visit Medications: Current Medications Generic Name Dose Route Start Last Admin Trade Name Brownq PRN Reason Stop Dose Admin Acetaminophen 1,000 mg 04/11/23 06:00 Acetaminophen 500 Mg Tab PO 05/11/23 05:59 Q4H PRN PRN Balanced Salt Solution 500 ml 04/11/23 06:00 Balanced Salt Soln.-Plus 500 Ml Bag OP 05/11/23 05:59 DIRECTED ISABEL Miscellaneous Medication 0 ml 04/11/23 06:00 Prednisolone 1%, Moxifloxacin 0.5%, Nepafenac 0.1% 5ml Btl OS 05/11/23 05:59 DIRECTED ISABEL Miscellaneous Medication 0 ml 04/11/23 06:00 Tropicam./Phenyleph. (1/2.5%) 5 Ml Btl OS 05/11/23 05:59 DIRECTED [facility] Tetracaine HCl 0 ml 04/11/23 06:00 Tetracaine 0.5% 4 Ml Btl OS 05/11/23 05:59 DIRECTED [facility] PFSH Active Problems Active Problems: Problem Status Onset Code Nuclear age-related cataract, left eye H25.12 Achilles tendon contracture, bilateral M67.01, M67.02 Corns and callosities L84 Metatarsalgia of both feet M77.41, M77.42 Porokeratosis Q82.8 Fibromyalgia Borderline diabetes mellitus GERD (gastroesophageal reflux disease) Trochanteric bursitis, right hip M70.61 Sacro-iliac pain M53.3 Conductive hearing loss, external ear H90.2 [place]-neck deformity of finger M20.039 Arthritis of carpometacarpal (CMC) joint of right thumb M18.11 Arthritis of carpometacarpal (CMC) joint of left thumb M18.12 Tinnitus, bilateral H93.13 Sensorineural hearing loss, bilateral 04/26/15 H90.3 Pseudogout of right knee 01/20/17 M11.261 Medical History Medical History Impacted cerumen, bilateral Impacted cerumen, right ear Tick bite History of excessive cerumen Impacted cerumen, left ear Unspecified rotator cuff tear or rupture of left shoulder, not specified as traumatic (04/11/17) Complete tear of right rotator cuff (09/15/15) Adhesive capsulitis of left shoulder (08/18/17) Secondary adhesive capsulitis of left shoulder Rotator cuff tear Surgical History Surgical History History of appendectomy History of bilateral tubal ligation History of facelift S/P right rotator cuff repair 2015, 2017 History of tonsillectomy and adenoidectomy Colonoscopy - MAC (05/02/17) Tobacco Smoking/Tobacco Use Status: Never Alcohol Alcohol Intake: current Alcohol intake frequency: holidays/special occasions only Substance Use Substance use: Never Substance use type: does not use Vital Signs and Lab Results Lab Results Blood Type / Crossmatch: No Data to Display Complete Blood Count: No Data to Display Complete Metabolic Panel: No Data to Display Liver Function Panel: No Data to Display Coagulation Panel: No Data to Display Cardiac Panel: No Data to Display Arterial Blood Gas: No Data to Display Venous Blood Gas: No Data to Display Pancreas Panel: No Data to Display Thyroid Panel: No Data to Display Infectious Disease: No Data to Display Blood Cultures: No Data to Display Toxicology Panel: No Data to Display Anesthesia Assessment and Plan Anesthesia History Personal History: No History of Anesthesia Complications Family History: No Family History of Anesthesia Complications Exercise Tolerance Exercise Tolerance: Metabolic Equivalents>4 Pertinent Negatives Pertinent Negatives: No Symptoms of GERD Cardiac & Pulmonary Exam Cardiac Exam: Normal S1/S2 Heart Sounds Pulmonary Exam: Clear Bilateral Breath Sounds Implantable Cardiac Device Does patient have a Pacemaker or an ICD?: No Airway Exam Known Difficult Airway: No Mallampati Class: 2 Mouth Opening: Normal (> 3cm) Thyromental Distance: Greater than 3 cm Neck Range of Motion: Full ROM Neck Circumference: Normal Teeth Condition: Normal Dentition ASA Classification ASA Score: ASA 2 Emergency Case?: No NPO Status NPO Status: NPO Clears >2 hours, Solids >8 hours Anesthesia Plan Resuscitation Status: Full Code Anesthesia Technique: MAC Anesthesia Airway Planned: Natural Airway Monitors Used: Standard Monitors
[2023-04-11 08:47] VITALS: BMI 20.6
[2023-04-11] MEDS: Tropicam./Phenyleph. (1/2.5%) 5 ML BTL OS ×3 (08:50→09:02)
[2023-04-11] MEDS: Balanced Salt Soln.-PLUS 500 ML BAG OP (09:47)
[2023-04-11] MEDS: Tetracaine 0.5% 4 ML BTL OS (09:49)
[2023-04-11] MEDS: Lidocaine 1% Pres-Free 5 ML VIAL (09:51)
[2023-04-11] MEDS: Duovisc Viscoelastic System EACH 1 EACH (09:51)
[2023-04-11] MEDS: Phenylephrine/Lidocaine (15/10) MG/ML 1 ML VIAL (09:53)
[2023-04-11] MEDS: Povidone-Iodine Ophth 30 ML BTL (09:53)
[2023-04-11 10:12] VITALS: BP 162/66; PULSE 48; RESP 16; TEMP 36.2; O2SAT 100
--- NOTE | 2023-04-11 10:15 | W.PM.DSUDISC ---
Date of service: 04/11/23 Time of Service: 10:15 Discharge Plan Disposition Patient Disposition: Home Discharge Details Attending Provider: Deangelo Munoz Primary Care Provider: Elif Mullen Home Meds and New Rx's Prescriptions: No Action escitalopram oxalate 5 mg tablet 5 mg PO DAILY valacyclovir 500 MG tablet 500 mg PO PRN vitamin B complex [B Complete] 1 EACH tablet 1 ea PO DAILY calcium carbonate 500 MG tablet,chewable 500 mg PO DAILY acetaminophen [Acetaminophen Extra Strength] 500 MG tablet 1,000 mg PO Q8H PRN PRNQty: 180 3RF Patient Comments: tylenol PM Turmeric/Herbal Complex No.278 [in-Fla-Mend Capsule] 150 MG capsule 150 mg PO DAILY Discharge Instructions Stand Alone Forms: Post-op Topical Cataract, Florencio You (DSU) Discharge Orders Discharge Orders: Discharge Order (Routine); Ordered 04/11/23 Ordered By: Deangelo Munoz DS: Diagnosis Discharge Diagnosis (1) Nuclear age-related cataract, left eye: Status: Resolved
--- NOTE | 2023-04-11 10:16 | W.PM.OP ---
Date of service: 04/11/23 Time of Service: 10:16 Operative Note Operative Note DATE OF PROCEDURE: 04/11/23 PRE-OP DIAGNOSIS: Nuclear cataract, left eye POST-OP DIAGNOSIS: same PROCEDURE: Cataract extraction using phacoemulsification with intraocular lens implant, left eye SURGEON: Deangelo Munoz ANESTHESIA TYPE: Local By Surgeon and MAC Refer to Anesthesia Record PATHOLOGY: none sent COMPLICATIONS: None Patient was transported to: same day Patient's condition: stable Implants: Asim Clareon [id number] Indications: Progressive decreased vision due to cataract, left eye Procedure Description: CATARACT SURGERY OPERATIVE REPORT PREOPERATIVE DIAGNOSIS: Nuclear cataract, left eye POSTOPERATIVE DIAGNOSIS: Same OPERATION: Cataract extraction using phacoemulsification with posterior chamber intraocular lens implant, left eye. IOL: IOL Fertilizing Machine Operator/Model: Asim Clareon [id number] IOL Power: + 20.0 diopters IOL Serial Number: [id number] Optic Diameter: 6.0mm Haptic/Overall Diameter: 13.0mm PHACO INFO: Asim [employer] and Marineurion Vision System with OZil and Active Fluidics Cumulative Dispersed Energy (CDE): 10.26 seconds SURGEON: Deangelo Munoz MD, SHIMA ANESTHESIA: Monitored Anesthesia Care (MAC), with local sub-tenon's anesthetic infiltration COMPLICATIONS: None SPECIMENS: None INDICATIONS FOR PROCEDURE: The patient is a 78-year-old lady with history of diminished visual acuity in her left eye secondary to the development of nuclear cataract. She has debilitating glare when driving at night. The option of cataract surgery was offered to the patient and she wished to proceed. See office notes for detailed information. PROCEDURE: The correct surgical eye was identified and marked as the left eye and the pupil was dilated in the preoperative area using mydriatics and cycloplegics. The dilated pupil size was 7.0 mm. The patient elected to proceed without oral sedation. The patient was brought to the operating room where cardiopulmonary monitoring was instituted and surgical time-out was performed, confirming the correct operative eye and IOL power. Topical anesthesia was administered and ophthalmic povidone-iodine 5% was instilled into the conjunctival fornices. The ofelia-ocular area was prepped with Betadine 10% solution and draped in the usual sterile fashion for intraocular surgery, including an aperture drape. A Tegaderm transparent film dressing was cut in half and used to cover the lashes and lid margins. Care was taken to sequester the lashes and lid margins under the Tegaderm dressing. A lid speculum was placed between the lids of the operative eye and the Asim LuxOR Revalia operating microscope was maneuvered into position. Ange scissors were then used to make a conjunctival buttonhole approximately 6mm posterior to the limbus in the inferonasal quadrant. Blunt dissection was carried out to expose bare sclera, and a blunt-tipped sub-tenon?s anesthesia cannula was introduced and passed posteriorly along the globe where non-preserved plain lidocaine was injected into posterior sub-Tenon?s space. A sideport knife was used to make a paracentesis port. Intraocular phenylephrine/lidocaine was injected into the anterior chamber. The anterior chamber was then filled with viscoelastic. A keratome knife was used construct a two-plane clear corneal tunnel extending 2.0mm into clear cornea. A flap was raised on the anterior capsule and capsulorhexis forceps were used to complete a continuous curvilinear capsulorhexis of 5.0 mm. Balanced salt solution was then used to perform cortical cleaving hydrodissection and nuclear hydrodelineation until the lens could be freely rotated within the capsular bag. The lens nucleus was then disassembled and removed within the capsular bag and iris plane using phacoemulsification. Residual cortical material was removed using the irrigation/aspiration handpiece. The posterior capsule was carefully polished to remove as much residual lens epithelial cells as safely possible. The capsular bag was then inflated and the anterior chamber deepened with viscoelastic. The lens implant described above was inserted into the capsular bag using the Asim Autonome Injector. A Kuglen hook was used to dial the IOL into position. Residual viscoelastic was then removed first from posterior to the IOL, then from the anterior chamber using the I/A handpiece. The lens implant was noted to center nicely within the capsular bag. The incisions were stromally hydrated, and the anterior chamber was reformed using BSS. Then 0.5cc of moxifloxacin 1.0mg/ml were injected into the capsular bag and anterior chamber. The incisions were checked with a Weck spear and found to be secure. Several drops of ophthalmic povidone-iodine 5% were then applied to the eye followed by two drops of Imprimis combination prednisolone/moxifloxacin/nepafenac solution. The drapes were removed and a clear plastic protective eye shield was placed over the eye. The patient was then returned to Same Day Surgery in stable condition.
--- NOTE | 2023-04-11 10:21 | W.ANESPOSTOP ---
Postoperative Evaluation Date, Time and Location Date Performed: 04/11/23 Time Performed: 10:21 Patient Location: Day Surgery Unit Vital Signs Most Recent Imported Vital Signs: Most Recent Vital Signs Temp Pulse Resp BP Pulse Ox 36.2 C L 48 L 16 162/66 H 100 04/11/23 10:12 04/11/23 10:12 04/11/23 10:12 04/11/23 10:12 04/11/23 10:12 Pain Score Most Recent Pain Score: Most Recent Pain Score Pain Level 0 04/11/23 10:12 Assessment Mental Status: Awake (Alert & Oriented to Patient Baseline) Airway and Respiratory Function: Patent airway with normal (patient baseline) respiratory exam Cardiovascular Function: Hemodynamically Stable Hydration Status: Adequately Hydrated Nausea & Vomiting: No Nausea or Vomiting Pain: Pt. Denies Any Pain Peripheral Nerve Block: Patient did not receive a nerve block
== END 2023-04-11 10:37 | disposition home or self-care (01) ==
LOC: SUR 08:30
PROVIDERS: PCP Family Medicine; Visit Provider Ophthalmology
PROC: (CPT 66984; principal; 2023-04-11 10:30)
DX: H25.12 Age-related nuclear cataract, left eye (principal); K21.9 Gastro-esophageal reflux disease without esophagitis
CPT/HCPCS: 66984; 00123; V2632

== ENCOUNTER 2023-05-30 08:14 | Day surgery (SDC) | payer MEDICARE, SELFPAY ==
--- NOTE | 2023-05-30 06:50 | W.PREOPHP ---
Assessment and Plan Assessment and plan (1) Nuclear age-related cataract, right eye: Status: Acute Assessment and plan: Assessment: Visually significant cataract of the right eye. Plan: Cataract extraction with lens implantation of the right eye. History of Present Illness History of Present Illness Chief Complaint: Progressive decreased vision, right eye Narrative: The patient is a 78-year-old lady with history of progressive decreased vision in both eyes at both distance and near. She notes significant difficulty with fine print and has severe difficulty with glare especially at night. On examination she was noted to have moderate bilateral nuclear cataracts. She was significantly symptomatic that she desired cataract surgery which was performed OS on 04/11/2023. Postoperatively she is doing well, but had to cancel her second eye surgery due to COVID. She now presents for cataract surgery in the right eye. Review of Systems All systems reviewed & are unremarkable except as noted in HPI and below PFSH All Active Problems Nuclear age-related cataract, right eye (Acute) Achilles tendon contracture, bilateral (Acute) Corns and callosities (Acute) Metatarsalgia of both feet (Acute) Porokeratosis (Acute) Fibromyalgia (Acute) Borderline diabetes mellitus (Acute) GERD (gastroesophageal reflux disease) (Chronic) Trochanteric bursitis, right hip (Acute) Sacro-iliac pain (Acute) Conductive hearing loss, external ear (Acute) [place]-neck deformity of finger (Acute) Arthritis of carpometacarpal (CMC) joint of right thumb (Acute) Arthritis of carpometacarpal (CMC) joint of left thumb (Acute) Tinnitus, bilateral (Acute) Sensorineural hearing loss, bilateral (Acute 04/26/15) Pseudogout of right knee (Acute 01/20/17) Medical History Impacted cerumen, bilateral Impacted cerumen, right ear Tick bite History of excessive cerumen Unspecified rotator cuff tear or rupture of left shoulder, not specified as traumatic (04/11/17) Complete tear of right rotator cuff (09/15/15) Adhesive capsulitis of left shoulder (08/18/17) Secondary adhesive capsulitis of left shoulder Rotator cuff tear Impacted cerumen, left ear Surgical History History of appendectomy History of bilateral tubal ligation History of facelift S/P right rotator cuff repair 2015, 2018 History of tonsillectomy and adenoidectomy Colonoscopy - MAC (05/02/17) Family History Mother Diabetes Alcohol abuse CHF (congestive heart failure) Afib Father Dementia Pacemaker Social History Smoking/Tobacco Use Status: Never Smoking risk assessment performed?: Yes Alcohol Intake: current Alcohol Intake frequency: holidays/special occasions only Drug use: Never Substance use type: does not use Housing: house Do you feel safe at home: Yes Do you feel safe in your relationship?: Yes Meds Allergies and Home Medications Allergies Allergy/AdvReac Type Severity Reaction Status Date / Time erythromycin base Allergy Mild Skin Rash Verified 05/30/23 08:51 metronidazole [From Flagyl] Allergy Mild Skin Rash Verified 05/30/23 08:51 nystatin Allergy Mild Skin Rash Verified 05/30/23 08:51 erythromycin lactobionate Allergy rash Verified 05/30/23 08:51 [From Erythrocin] omeprazole AdvReac Intermediate Verified 05/30/23 08:51 NSAIDS (Non-Steroidal AdvReac mouth sores Verified 05/30/23 08:51 Anti-Inflamma Home Medications Medication Instructions Recorded Confirmed Type valacyclovir 500 mg tablet 500 mg PO PRN 07/21/15 05/30/23 History calcium carbonate 500 mg calcium 500 mg PO DAILY 07/24/15 05/30/23 History (1,250 mg) chewable tablet vitamin B complex (B Complete 1 ea PO DAILY 07/24/15 05/30/23 History tablet) acetaminophen 500 mg tablet 1,000 mg (2 x 500 mg) PO Q8H PRN 06/19/17 05/30/23 Rx (Acetaminophen Extra Strength) PRN #180 tabs escitalopram oxalate 5 mg tablet 5 mg PO DAILY 06/13/22 05/30/23 History Exam Eyes Other: Most recent ocular examination reveals uncorrected vision of 20/25 OS. Corrected vision is 20/20 in the right eye, but with some glare disability. Intraocular pressure is 11 OD 13 OS. Extract motility is normal. Slit-lamp examination reveals a moderate nuclear cataract in the right eye. In the left eye there is a well-positioned PCIOL with clear posterior capsule. Dilated funduscopic examination shows disc cupping of 0.2 OU with normal vessels, macula, peripheral retina and vitreous. Resp Auscultation: clear to auscultation bilaterally Cardio Rate: regular rate Rhythm: regular rhythm
[2023-05-30 08:58] VITALS: BP 146/67; PULSE 53; RESP 16; TEMP 36.4; O2SAT 95
--- NOTE | 2023-05-30 09:15 | W.ANESPRE ---
General Info Date of Service Date Performed: 05/30/23 Height: 5 ft 6.5 in Weight: 57.6 kg Body Mass Index (BMI): 20.2 Surgical Procedure: Operation Date: 05/30/23 09:55 Proposed Procedure Side Surgeon p Cataract Extraction with IOL Implant Right Deangelo Munoz MD Meds Allergies and Home Medications Allergies Allergy/AdvReac Type Severity Reaction Status Date / Time erythromycin base Allergy Mild Skin Rash Verified 05/30/23 08:51 metronidazole [From Flagyl] Allergy Mild Skin Rash Verified 05/30/23 08:51 nystatin Allergy Mild Skin Rash Verified 05/30/23 08:51 erythromycin lactobionate Allergy rash Verified 05/30/23 08:51 [From Erythrocin] omeprazole AdvReac Intermediate Verified 05/30/23 08:51 NSAIDS (Non-Steroidal AdvReac mouth sores Verified 05/30/23 08:51 Anti-Inflamma Home Medication Medication Instructions Recorded valacyclovir 500 mg tablet 500 mg PO PRN 07/21/15 calcium carbonate 500 mg calcium 500 mg PO DAILY 07/24/15 (1,250 mg) chewable tablet vitamin B complex (B Complete 1 ea PO DAILY 07/24/15 tablet) acetaminophen 500 mg tablet 1,000 mg (2 x 500 mg) PO Q8H PRN 06/19/17 (Acetaminophen Extra Strength) PRN #180 tabs escitalopram oxalate 5 mg tablet 5 mg PO DAILY 06/13/22 Current Visit Medications: Current Medications Generic Name Dose Route Start Last Admin Trade Name Freq PRN Reason Stop Dose Admin Acetaminophen 1,000 mg 05/30/23 06:00 Acetaminophen 500 Mg Tab PO 06/29/23 05:59 Q4H PRN PRN Balanced Salt Solution 500 ml 05/30/23 06:00 Balanced Salt Soln.-Plus 500 Ml Bag OP 06/29/23 05:59 DIRECTED [facility] Miscellaneous Medication 0 ml 05/30/23 08:00 05/30/23 09:13 Tropicam./Phenyleph. (1/2.5%) 10 Ml Btl OD 05/30/23 23:59 1 drp DIRECTED ISABEL Administration Miscellaneous Medication 0 ml 05/30/23 06:00 Prednisolone 1%, Moxifloxacin 0.5%, Bromfenac 0.09% 5ml Btl OD 06/29/23 05:59 DIRECTED ISABEL Tetracaine HCl 0 ml 05/30/23 06:00 Tetracaine 0.5% 4 Ml Btl OD 06/29/23 05:59 DIRECTED [facility] Active Problems Active Problems: Problem Status Onset Code Nuclear age-related cataract, right eye H25.11 Nuclear age-related cataract, left eye H25.12 Achilles tendon contracture, bilateral M67.01, M67.02 Corns and callosities L84 Metatarsalgia of both feet M77.41, M77.42 Porokeratosis Q82.8 Fibromyalgia Borderline diabetes mellitus GERD (gastroesophageal reflux disease) Trochanteric bursitis, right hip M70.61 Sacro-iliac pain M53.3 Conductive hearing loss, external ear H90.2 [place]-neck deformity of finger M20.039 Arthritis of carpometacarpal (CMC) joint of right thumb M18.11 Arthritis of carpometacarpal (CMC) joint of left thumb M18.12 Tinnitus, bilateral H93.13 Sensorineural hearing loss, bilateral 04/26/15 H90.3 Pseudogout of right knee 01/20/17 M11.261 Medical History Medical History Impacted cerumen, bilateral Impacted cerumen, right ear Tick bite History of excessive cerumen Unspecified rotator cuff tear or rupture of left shoulder, not specified as traumatic (04/11/17) Complete tear of right rotator cuff (09/15/15) Adhesive capsulitis of left shoulder (08/18/17) Secondary adhesive capsulitis of left shoulder Rotator cuff tear Impacted cerumen, left ear Surgical History Surgical History History of appendectomy History of bilateral tubal ligation History of facelift S/P right rotator cuff repair 2015, 2017 History of tonsillectomy and adenoidectomy Colonoscopy - MAC (05/02/17) Tobacco Smoking/Tobacco Use Status: Never Alcohol Alcohol Intake: current Alcohol intake frequency: holidays/special occasions only Substance Use Substance use: Never Substance use type: does not use Vital Signs and Lab Results Vital Signs Most Recent Vital Signs in EMR: Most Recent Vital Signs Temp Pulse Resp BP Pulse Ox 36.4 C L 53 L 16 146/67 H 95 05/30/23 08:58 05/30/23 08:58 05/30/23 08:58 05/30/23 08:58 05/30/23 08:58 Lab Results Blood Type / Crossmatch: No Data to Display Complete Blood Count: No Data to Display Complete Metabolic Panel: No Data to Display Liver Function Panel: No Data to Display Coagulation Panel: No Data to Display Cardiac Panel: No Data to Display Arterial Blood Gas: No Data to Display Venous Blood Gas: No Data to Display Pancreas Panel: No Data to Display Thyroid Panel: No Data to Display Infectious Disease: No Data to Display Blood Cultures: No Data to Display Toxicology Panel: No Data to Display Imaging and Studies Imaging and Studies Study information below may be from another EMR and interpreted by another provider. Please see original notes in EMR for more complete details. EKG Summary: 03/31/20: Exam: Resting ECG Patient Location: E HR:62 bpm ECG Measurements Heart Rate 62 AXIS FL 165 P 68 QRSd 64 QRS 69 QT 452 T57 QTc 451 Conclusion Sinus rhythm...normal P axis, V-rate 60- 99 Atrial premature complex...SV complex w/ short R-R interval I have reviewed and I agree with the emergency room physician???s ECG interpretation. Carotid Artery Summary:: 04/13/20: IMPRESSION: No evidence for hemodynamically significant carotid stenosis. Anesthesia Assessment and Plan Anesthesia History Personal History: No History of Anesthesia Complications Family History: No Family History of Anesthesia Complications Exercise Tolerance Exercise Tolerance: Metabolic Equivalents>4 Pertinent Negatives Pertinent Negatives: No Symptoms of GERD, No Major Cardiovascular Symptoms or Complaints and No Major Pulmonary Symptoms or Complaints Cardiac & Pulmonary Exam Cardiac Exam: Normal S1/S2 Heart Sounds Pulmonary Exam: Clear Bilateral Breath Sounds Implantable Cardiac Device Does patient have a Pacemaker or an ICD?: No Airway Exam Known Difficult Airway: No Mallampati Class: 2 Mouth Opening: Normal (> 3cm) Thyromental Distance: Greater than 3 cm Neck Range of Motion: Full ROM Neck Circumference: Normal Teeth Condition: Normal Dentition ASA Classification ASA Score: ASA 2 Emergency Case?: No NPO Status NPO Status: NPO Clears >2 hours, Solids >8 hours Anesthesia Plan Resuscitation Status: Full Code Anesthesia Technique: MAC Anesthesia Airway Planned: Natural Airway Monitors Used: Standard Monitors
[2023-05-30 09:52] VITALS: BMI 20.2
[2023-05-30] MEDS: Balanced Salt Soln.-PLUS 500 ML BAG OP (10:02)
[2023-05-30] MEDS: Lidocaine 1% Pres-Free 5 ML VIAL (10:03)
[2023-05-30] MEDS: Duovisc Viscoelastic System EACH 1 EACH (10:04)
[2023-05-30] MEDS: Povidone-Iodine Ophth 30 ML BTL (10:05)
[2023-05-30] MEDS: Tetracaine 0.5% 4 ML BTL OD (10:05)
--- NOTE | 2023-05-30 10:20 | ROE_ITS ---
Date of service: 05/30/23 Time of Service: 10:20 Operative Note Operative Note DATE OF PROCEDURE: 05/30/23 PRE-OP DIAGNOSIS: Nuclear cataract, right eye POST-OP DIAGNOSIS: same PROCEDURE: Cataract extraction using phacoemulsification with intraocular lens implant, right eye SURGEON: Deangelo Munoz ANESTHESIA TYPE: Local By Surgeon and MAC Refer to Anesthesia Record ESTIMATED BLOOD LOSS: 0 PATHOLOGY: none sent COMPLICATIONS: None Patient was transported to: same day Patient's condition: stable Implants: Asim Clareon [id number] Indications: Progressive decreased vision due to cataract, right eye Procedure Description: CATARACT SURGERY OPERATIVE REPORT PREOPERATIVE DIAGNOSIS: Nuclear cataract, right eye POSTOPERATIVE DIAGNOSIS: Same OPERATION: Cataract extraction using phacoemulsification with posterior chamber intraocular lens implant, right eye. IOL: IOL Director Biostatistics/Model: Asim Clareon [id number] IOL Power: + 20.0 diopters IOL Serial Number: [id number] Optic Diameter: 6.0mm Haptic/Overall Diameter: 13.0mm PHACO INFO: Asim[employer]ion Vision System with OZil and Active Fluidics Cumulative Dispersed Energy (CDE): 13.90 seconds SURGEON: Deangelo Munoz MD, SHIMA ANESTHESIA: Monitored Anesthesia Care (MAC), with local sub-tenon's anesthetic infiltration COMPLICATIONS: None SPECIMENS: None INDICATIONS FOR PROCEDURE: The patient is a 78-year-old lady with history of diminished visual acuity in both eyes secondary to the development of bilateral nuclear cataract. She is significantly symptomatic that she desires cataract surgery and attempt to improve and maximize her vision. She has already undergone cataract surgery in the left eye and is doing well postoperatively. She now presents for cataract surgery in the right eye. See office notes for detailed information. PROCEDURE: The correct surgical eye was identified and marked as the right eye and the pupil was dilated in the preoperative area using mydriatics and cycloplegics. The dilated pupil size was 7.0 mm. The patient elected to proceed without oral sedation. The patient was brought to the operating room where cardiopulmonary monitoring was instituted and surgical time-out was performed, confirming the correct operative eye and IOL power. Topical anesthesia was administered and ophthalmic povidone-iodine 5% was instilled into the conjunctival fornices. The ofelia-ocular area was prepped with Betadine 10% solution and draped in the usual sterile fashion for intraocular surgery, including an aperture drape. A Tegaderm transparent film dressing was cut in half and used to cover the lashes and lid margins. Care was taken to sequester the lashes and lid margins under the Tegaderm dressing. A lid speculum was placed between the lids of the operative eye and the Teresa-Dana operating microscope was maneuvered into position. Ange scissors were then used to make a conjunctival buttonhole approximately 6mm posterior to the limbus in the inferonasal quadrant. Blunt dissection was carried out to expose bare sclera, and a blunt-tipped sub-tenon?s anesthesia cannula was introduced and passed posteriorly along the globe where non- preserved plain lidocaine was injected into posterior sub-Tenon?s space. A sideport knife was used to make a paracentesis port. Intraocular phenylephrine/lidocaine was injected into the anterior chamber. The anterior chamber was then filled with viscoelastic. A keratome knife was used to construct a two--plane clear corneal tunnel extending 2.0mm into clear cornea. A flap was raised on the anterior capsule and capsulorhexis forceps were used to complete a continuous curvilinear capsulorhexis of 5.0 mm. Balanced salt solution was then used to perform cortical cleaving hydrodissection and nuclear hydrodelineation until the lens could be freely rota néo within the capsular bag. The lens nucleus was then disassembled and removed within the capsular bag and iris plane using phacoemulsification. Residual cortical material was removed using the I/A handpiece. The posterior capsule was carefully polished to remove as much residual lens epithelial cells as safely possible. The capsular bag was then inflated and the anterior chamber deepened with cohesive viscoelastic. The lens implant described above was inserted into the capsular bag using the Asim Autonome Injector. A Kuglen hook was used to dial the IOL into position. Residual viscoelastic was then removed first from posterior to the IOL, then from the anterior chamber using the I/A handpiece. The lens implant was noted to center nicely within the capsular bag. The incisions were stromally hydrated, and the anterior chamber was reformed using BSS. Then 0.5cc of moxifloxacin 1.0mg/ml were injected into the capsular bag and anterior chamber. The incisions were checked with a Weck spear and found to be secure. Several drops of ophthalmic povidone-iodine 5% were then applied to the eye followed by two drops of combination steroid/NSAID/antibiotic solution. The drapes were removed and a clear plastic protective eye shield was placed over the eye. The patient was then returned to [facility] in stable condition.
--- NOTE | 2023-05-30 10:20 | W.PM.DSUDISC ---
Date of service: 05/30/23 Time of Service: 10:20 Discharge Plan Disposition Patient Disposition: Home Discharge Details Attending Provider: Deangelo Munoz Primary Care Provider: Elif Mullen Home Meds and New Rx's Prescriptions: No Action escitalopram oxalate 5 mg tablet 5 mg PO DAILY valacyclovir 500 MG tablet 500 mg PO PRN vitamin B complex [B Complete] 1 EACH tablet 1 ea PO DAILY calcium carbonate 500 MG tablet,chewable 500 mg PO DAILY acetaminophen [Acetaminophen Extra Strength] 500 MG tablet 1,000 mg PO Q8H PRN PRNQty: 180 3RF Patient Comments: tylenol PM Discharge Instructions Stand Alone Forms: DSU Post-Op Cataract Discharge Orders Discharge Orders: Discharge Order (Routine); Ordered 05/30/23 Ordered By: Deangelo Munoz DS: Diagnosis Discharge Diagnosis (1) Nuclear age-related cataract, right eye: Status: Resolved
[2023-05-30 10:35] VITALS: BP 152/61; PULSE 50; RESP 16; TEMP 36.5; O2SAT 99
--- NOTE | 2023-05-30 13:23 | W.ANESPOSTOP ---
Postoperative Evaluation Date, Time and Location Date Performed: 05/30/23 Time Performed: 10:26 Patient Location: Day Surgery Unit Vital Signs Most Recent Imported Vital Signs: Most Recent Vital Signs Temp Pulse Resp BP Pulse Ox 36.5 C 50 L 16 152/61 H 99 05/30/23 10:35 05/30/23 10:35 05/30/23 10:35 05/30/23 10:35 05/30/23 10:35 Pain Score Most Recent Pain Score: Most Recent Pain Score Pain Level 0 05/30/23 10:35 Assessment Mental Status: Awake (Alert & Oriented to Patient Baseline) Airway and Respiratory Function: Patent airway with normal (patient baseline) respiratory exam Cardiovascular Function: Hemodynamically Stable Hydration Status: Adequately Hydrated Nausea & Vomiting: No Nausea or Vomiting Pain: Pt. Denies Any Pain Peripheral Nerve Block: Patient did not receive a nerve block
== END 2023-05-30 10:50 | disposition home or self-care (01) ==
LOC: SUR 08:15
PROVIDERS: PCP Family Medicine; Visit Provider Ophthalmology
PROC: (CPT 66984; principal; 2023-05-30 09:45)
DX: H25.11 Age-related nuclear cataract, right eye (principal); Z98.42 Cataract extraction status, left eye
CPT/HCPCS: 66984; 00123; V2632

== ENCOUNTER → 2023-07-24 13:31 | Outpatient (BNVA) | payer MEDICARE, SELFPAY | PROVIDERS: PCP Family Medicine; Referring Provider Family Medicine; Visit Provider Student in an Organized Health Care Education/Training Program | DX: M18.12 Unilateral primary osteoarthritis of first carpometacarpal joint, left hand (principal) | CPT/HCPCS: 20604; J1030 ==

== ENCOUNTER → 2023-08-29 08:30 | Outpatient (BNVA) | payer MEDICARE, SELFPAY | PROVIDERS: PCP Family Medicine; Referring Provider Family Medicine; Visit Provider Physical Therapy Assistant | DX: I73.9 Peripheral vascular disease, unspecified (principal) | CPT/HCPCS: 93922 ==

== ENCOUNTER → 2023-09-18 14:13 | Outpatient (BNVA) | payer MEDICARE, SELFPAY | PROVIDERS: PCP Family Medicine; Referring Provider Family Medicine; Visit Provider Student in an Organized Health Care Education/Training Program | DX: M18.12 Unilateral primary osteoarthritis of first carpometacarpal joint, left hand (principal); M18.11 Unilateral primary osteoarthritis of first carpometacarpal joint, right hand | CPT/HCPCS: 99213 ==

== ENCOUNTER → 2023-09-25 11:07 | Outpatient (BNVA) | payer MEDICARE, SELFPAY | PROVIDERS: PCP Family Medicine; Referring Provider Family Medicine; Visit Provider Podiatrist | DX: Q82.8 Other specified congenital malformations of skin; M77.41 Metatarsalgia, right foot; M77.42 Metatarsalgia, left foot; L84 Corns and callosities; M67.01 Short Achilles tendon (acquired), right ankle; M67.02 Short Achilles tendon (acquired), left ankle; R79.89 Other specified abnormal findings of blood chemistry | CPT/HCPCS: 99214 ==

== ENCOUNTER → 2023-10-23 15:07 | Outpatient (BNVA) | payer MEDICARE, SELFPAY | PROVIDERS: PCP Family Medicine; Referring Provider Family Medicine; Visit Provider Student in an Organized Health Care Education/Training Program | DX: M18.11 Unilateral primary osteoarthritis of first carpometacarpal joint, right hand (principal); M18.12 Unilateral primary osteoarthritis of first carpometacarpal joint, left hand | CPT/HCPCS: 20604; J1010 ==

== ENCOUNTER 2024-09-23 01:18 | Outpatient (CLI) | payer MEDICARE, SELFPAY ==
--- NOTE | 2024-09-23 | DI.DEXA_ITS ---
Exam(s) XR DEXA BONE DENSITY W/WO NAOMI EXAM: XR DEXA BONE DENSITY W/WO NAOMI CLINICAL HISTORY: ASYMPTOMATIC MENOPAUSAL STATE, Z78.0, SCREENING TECHNIQUE: Routine DEXA evaluation of the lumbar spine, hip, or forearm. COMPARISON: CR XR DEXA BONE DENSITY W/WO NAOMI from 08/10/2020 CR XR HIP PELVIS ADULT BL from 11/25/2022 DEXA scan of 08/10/2020. FINDINGS: Performed on a [employer] unit. Lateral image: No compression fracture evident. Lumbar Spine total T-score: -1.4 which is in osteopenia range. Prior reading in July 2020 was -1.2. Hip total T-score:-2.0 which is in the osteopenia range. The prior reading in July 2020 was -1.6 Independent reading at the level of the femoral neck yields T-score of -2.1. Prior reading at this level in July 2020 was -1.7 Forearm total T-score: -5.1 which is in the osteoporosis range. Prior reading in July 2020 was -5.0 IMPRESSION: Mild further progression of bone loss when compared to most recent DEXA scan of July 2020. Bone min eral density measures in the osteopenia range for the lumbar spine and hip and again in the osteoporo sis range for the wrist. Fracture risk is moderate-high. Note: Any spine fracture indicates 5x risk for subsequent spine fracture and 2x risk for subsequent h ip fracture. World Health Organization criteria for BMD interpretation classify patients: Normal...... T- Score at or above -1.0 Osteopenic... T- Score between -1.0 and -2.5 Osteoporosis... T-Score at or below -2.5
== END 2024-09-23 01:38 ==
LOC: DI 01:18
PROVIDERS: PCP Family Medicine; Visit Provider Family Medicine
DX: Z78.0 Asymptomatic menopausal state (principal); Z13.820 Encounter for screening for osteoporosis; M85.89 Other specified disorders of bone density and structure, multiple sites
CPT/HCPCS: 77080

== ENCOUNTER → 2025-01-03 08:10 | Outpatient (BNVA) | payer MEDICARE, SELFPAY | PROVIDERS: PCP Family Medicine; Referring Provider Family Medicine; Visit Provider Student in an Organized Health Care Education/Training Program | DX: M18.0 Bilateral primary osteoarthritis of first carpometacarpal joints (principal) | CPT/HCPCS: 20604; J1010 ==

== ENCOUNTER → 2025-01-24 11:14 | Outpatient (BNVA) | payer MEDICARE, SELFPAY | PROVIDERS: PCP Family Medicine; Referring Provider Family Medicine; Visit Provider Student in an Organized Health Care Education/Training Program | DX: M18.11 Unilateral primary osteoarthritis of first carpometacarpal joint, right hand (principal); M18.12 Unilateral primary osteoarthritis of first carpometacarpal joint, left hand | CPT/HCPCS: 20604; J1010 ==

== ENCOUNTER 2025-03-14 02:20 | Outpatient (CLI) | payer MEDICARE, SELFPAY ==
--- NOTE | 2025-03-14 11:20 | DI.MRI_ITS ---
Exam(s) MR BRAIN WO EXAM: MR BRAIN WO CLINICAL HISTORY: MEMORY CHANGE,R41.3,COGNITIVE DECLINE,R41.89,EVALUATE FOR ARIA TECHNIQUE: Multiplanar multisequence MRI of the brain was performed. COMPARISON: CT CT BRAIN NECK CTA from 03/31/2020 FINDINGS: VENTRICLES AND EXTRA AXIAL SPACES: Normal in size and morphology for the patient's age. MIDLINE SHIFT: None. CEREBRAL PARENCHYMA: No focus of restricted diffusion to suggest acute infarct. No evidence of brain edema. No space-occupying lesion identified. Mild atrophy consistent with the patient's age. Single focus of high signal in the posterior left frontal white matter, likely sequela of chronic microvascular disease. No evidence of acute hemorrhage or old microhemorrhages. BRAINSTEM/CEREBELLUM: Normal. VISUALIZED PARANASAL SINUSES: Clear. MASTOIDS:Clear. Vasculature: Normal flow void. PITUITARY GLAND: Unremarkable. ORBITS: Unremarkable. IMPRESSION: Single focus of high signal in the left posterior frontal lobe, likely sequela of microvascular change. No specific features for ARIA. DATA REPOSITORY:
== END 2025-03-14 02:40 ==
LOC: DI 02:20
PROVIDERS: PCP Family Medicine; Visit Provider Psychiatry & Neurology Neurology
DX: R41.3 Other amnesia (principal); R41.89 Other symptoms and signs involving cognitive functions and awareness
CPT/HCPCS: 70551

== ENCOUNTER → 2025-05-16 14:46 | Outpatient (BNVA) | payer MEDICARE, SELFPAY | PROVIDERS: PCP Family Medicine; Referring Provider Family Medicine; Visit Provider Student in an Organized Health Care Education/Training Program | DX: M18.11 Unilateral primary osteoarthritis of first carpometacarpal joint, right hand (principal); M18.12 Unilateral primary osteoarthritis of first carpometacarpal joint, left hand | CPT/HCPCS: 99213 ==